=== PATIENT | male | born 1965 | race Caucasian/White ===

== ENCOUNTER 2017-04-29 16:29 | Emergency (ER) | payer SELFPAY ==
[~2017-04-29] VITALS: Ht 185.4 cm; Wt 75.0 kg
[~2017-04-29 16:29] MED LIST: AMOX500T PO; INVE6TAB2 PO
[2017-04-29 16:32] VITALS: BP 140/88; PULSE 97; RESP 16; TEMP 98.7; O2SAT 98
--- NOTE | 2017-04-29 18:02 | PD ---
HPI Chief Complaint: Facial Pain or Swelling Time Seen by Provider: 18:01 Travel History International Travel<30 days: No Contact w/Intl Traveler<30days: No Traveled to known affect area: No History of Present Illness HPI 51-year-old male presents to the emergency Department with complaint of right- sided facial swelling to his right cheek area 2 days. Denies tooth pain. Denies fever, vomiting. Denies sore throat or difficulty swallowing. Denies unusual drooling. Has been taking ibuprofen for symptom management with good relief of pain. No known aggravating factors. Symptoms are moderate in severity. No known allergies. No primary care provider. Has no other medical complaints. No other modifying factors or associated signs and symptoms. PFSH Past Medical History Diabetes: Yes Patient Takes Glucophage: No Past Surgical History Appendectomy: Yes Social History Alcohol Use: Yes (OCC) Tobacco Use: Yes (2 CIG DAY) Substance Use: No Allergies-Medications (Allergen,Severity, Reaction): Coded Allergies: No Known Allergies (Unverified , 04/15/16) Reported Meds & Prescriptions Reported Meds & Active Scripts Active Deltasone (Prednisone) 20 Mg Tab 20 Mg PO BID 4 Days start 04/30/2017 Peridex Liq (Chlorhexidine Gluconate (Mouth) Liq) 0.12% Soln 15 Ml SWISH-SPIT BID 10 Days Ibuprofen 800 Mg Tab 800 Mg PO Q6HR PRN Clindamycin (Clindamycin HCl) 150 Mg Cap 450 Mg PO Q6H 10 Days Review of Systems Except as stated in HPI: all other systems reviewed are Neg Physical Exam Narrative GENERAL: Well-nourished, well-developed male patient, in no acute distress; afebrile, nontoxic-appearing SKIN: Warm and dry. HEAD: Atraumatic. Normocephalic. Normal right-sided facial edema and with tenderness on palpation; no erythema. No lymphadenopathy. EYES: Pupils equal and round. No scleral icterus. No injection or drainage. ENT: Mucosa pink and moist. No erythema or exudates. No uvular edema. No uvular , palatal, or tonsillar deviation. Airway patent. EARS: Bilateral pinnae and external canals appear within normal limits. Bilateral tympanic membranes without erythema, dullness or perforation. MOUTH: Mucous membranes moist, no lesions, tongue appear normal. Right upper gingiva with obvious abscess and fluctuance; with erythema and edema to the area. No drainage noted. Partially edentulous with multiple dental cavities and tooth decay. NECK: Trachea midline. No lymphadenopathy. CARDIOVASCULAR: Regular rate. RESPIRATORY: No accessory muscle use. GASTROINTESTINAL: Flat. MUSCULOSKELETAL: No obvious deformities. No clubbing. No cyanosis. No edema. NEUROLOGICAL: Awake and alert. Oriented 3. No obvious cranial nerve deficits. Motor grossly within normal limits. Normal speech. PSYCHIATRIC: Appropriate mood and affect; insight and judgment normal. Data Data Last Documented VS Vital Signs Date Time Temp Pulse Resp B/P (MAP) Pulse Ox O2 Delivery O2 Flow Rate FiO2 04/29/17 16:32 98.7 97 16 140/88 (105) 98 Orders Orders Clindamycin Inj (Cleocin Inj) (04/29/17 18:30) Prednisone (Deltasone) (04/29/17 18:30) MDM Medical Decision Making Medical Screen Exam Complete: Yes Emergency Medical Condition: Yes Medical Record Reviewed: Yes Differential Diagnosis Dental abscess, infected dental caries, dentalgia Narrative Course 51-year-old male with right upper dental abscess. See my procedure note for incision and drainage. Clindamycin 600 mg IM administered in the ER. Deltasone administered in the ER. I with the patient pain medication and he declined. Ibuprofen was taken prior to arrival. Instructed patient to follow up with dentist. Emergency dental information sheet provided for follow-up. Clindamycin, Peridex mouth rinse, ibuprofen prescribed for home. Instructed patient to follow up with primary care provider. Patient verbalizes understanding and agreement with treatment plan. Patient is medically cleared and stable for discharge. Discussed reasons to return to the emergency department. Patient agrees with treatment plan. The patients vital signs are stable and the patient is stable for outpatient follow-up and treatment. Patient discharged home, stable and in no acute distress. Procedures Procedure Narrative INCISION AND DRAINAGE OF ABSCESS: The area was prepped and was sterilely draped. Hurricaine spray was used to anesthetize the area. The area was properly anesthetized. A number 11 scalpel was used to make a less than 0.5-cm incision across the area of the abscess. The abscess was drained an irrigated with normal saline. Sterile dressing applied. Diagnosis Primary Impression: Dental abscess Referrals: Dentist Primary Care Physician Patient Instructions: Dental Abscess (ED), General Instructions Additional Instructions: Complete full course of antibiotics Ibuprofen or Tylenol as directed and as needed to reduce pain and inflammation Use Peridex as directed for oral hygiene Warm or cool compresses to the affected area Follow-up with dentist Follow-up with primary care provider Return to emergency department immediately with worsening of symptoms Med/Other Pt SpecificInfo: Prescription(s) given Scripts Hydrocodone-Acetaminophen ([place]) 5 Mg-325 Mg Tab 1 TAB PO Q4H Y for PAIN, #8 TAB 0 Refills Prov: Peyton Earl 04/29/17 Prednisone (Deltasone) 20 Mg Tab 20 MG PO BID for 4 Days, #8 TAB 0 Refills start 04/30/2017 Prov: Peyton Earl 04/29/17 Chlorhexidine Gluconate (Mouth) Liq (Peridex Liq) 0.12% Soln 15 ML SWISH-SPIT BID for 10 Days, #300 ML 0 Refills Prov: Peyton Earl 04/29/17 Ibuprofen (Ibuprofen) 800 Mg Tab 800 MG PO Q6HR Y for PAIN, #30 TAB 0 Refills Prov: Peyton Earl 04/29/17 Clindamycin (Clindamycin) 150 Mg Cap 450 MG PO Q6H for Infection for 10 Days, #120 CAP 0 Refills Prov: Peyton Earl 04/29/17 Disposition: 01 DISCHARGE HOME Condition: Stable Peyton Earl Apr 29, 2017 18:02
[2017-04-29] MEDS ORDERED: IBUP1TAB7 PO (18:22)
[2017-04-29] MEDS ORDERED: PERI0.126 SWISH-SPIT (18:22)
[2017-04-29] MEDS ORDERED: PRED-503 PO (18:22)
[2017-04-29] MEDS ORDERED: CLIN150C14 PO (18:22)
[2017-04-29] MEDS ORDERED: predniSONE 20 MG TAB PO ONE (18:30)
[2017-04-29] MEDS ORDERED: CLINDAMYCIN PHOS 600 MG/4 ML VIAL IM ONE (18:30)
[2017-04-29] MEDS ORDERED: NORC5TAB PO (19:14)
== END 2017-04-29 19:35 | disposition home or self-care (01) ==
LOC: NEPK 16:29
DX: K04.7 Periapical abscess without sinus (principal); K02.9 Dental caries, unspecified; E11.9 Type 2 diabetes mellitus without complications; F17.210 Nicotine dependence, cigarettes, uncomplicated; Z79.899 Other long term (current) drug therapy
CPT/HCPCS: 40800; 96372; 99284; J7512

== ENCOUNTER 2017-05-23 14:49 | Emergency (ER) | payer SELFPAY ==
[~2017-05-23 14:49] MED LIST changes: -AMOX500T PO; +CLIN150C14 PO; +IBUP1TAB7 PO; -INVE6TAB2 PO; +NORC5TAB PO; +PERI0.126 SWISH-SPIT; +PRED-503 PO
[2017-05-23 14:54] VITALS: BP 130/77; PULSE 74; RESP 16; TEMP 97.9; O2SAT 99
--- NOTE | 2017-05-23 15:41 | PD ---
HPI Chief Complaint: Injury Time Seen by Provider: 15:33 Travel History International Travel<30 days: No Contact w/Intl Traveler<30days: No Traveled to known affect area: No History of Present Illness HPI 51-year-old male presents to the emergency department for evaluation of left thoracic rib injury that occurred just prior to arrival. Patient states he fell at work off a truck and hit the bumper of a another truck with his ribs. He denies any other injury. No head injury or LOC. No neck pain or back pain. No abdominal pain. No vomiting. No hip or pelvic pain. Patient is not currently on any prescribed medications. Current pain is 10/10, worse with movement. Pain is slightly relieved with rest. Moderate severity. PFSH Past Medical History Diabetes: Yes Patient Takes Glucophage: No Past Surgical History Appendectomy: Yes Social History Alcohol Use: Yes (OCC) Tobacco Use: Yes Substance Use: No (HX OF) Allergies-Medications (Allergen,Severity, Reaction): Coded Allergies: No Known Allergies (Unverified Adverse Reaction, Unknown, 05/23/17) Reported Meds & Prescriptions Reported Meds & Active Scripts Active No Active Prescriptions or Reported Medications Review of Systems Except as stated in HPI: all other systems reviewed are Neg Physical Exam Narrative GENERAL: Well-nourished, well-developed male patient, afebrile. SKIN: Focused skin assessment warm/dry. HEAD: Normocephalic. Atraumatic. EYES: No scleral icterus. No injection or drainage. NECK: Supple, trachea midline. No JVD or lymphadenopathy. CARDIOVASCULAR: Regular rate and rhythm without murmurs, gallops, or rubs. RESPIRATORY: Breath sounds equal bilaterally. No accessory muscle use. Lungs sounds clear to auscultation. GASTROINTESTINAL: Abdomen soft, non-tender, nondistended. No abdominal pain to palpation. MUSCULOSKELETAL: No cyanosis, or edema. Patient has tenderness to palpation over left mid thoracic ribs. BACK: Nontender without obvious deformity. No CVA tenderness. Data Data Last Documented VS Vital Signs Date Time Temp Pulse Resp B/P (MAP) Pulse Ox O2 Delivery O2 Flow Rate FiO2 05/23/17 14:54 97.9 74 16 130/77 (94) 99 Orders Orders Ribs, Uni (W/Exp Cxr-Min 3vw) (05/23/17 ) Morphine Inj (Morphine Inj) (05/23/17 15:45) Ondansetron Inj (Zofran Inj) (05/23/17 15:45) MDM Medical Decision Making Medical Screen Exam Complete: Yes Emergency Medical Condition: Yes Medical Record Reviewed: Yes Interpretation(s) X-ray left ribs with chest - CONCLUSION: Acute fractures left RIBS 6, 7, and 8 lateral posterior laterally. No pneumothorax. Differential Diagnosis Rib fracture versus contusion versus pneumothorax versus hemothorax Narrative Course 51-year-old male presents to the emergency department for evaluation of left wrist injury that occurred just prior to arrival. Patient appears to be in significant amount of pain on exam. He is given morphine 4 mg IM, Zofran 4 mg IM for pain. X-ray of the left ribs with chest is ordered and pending. X-ray of the left ribs with chest shows acute fractures left RIBS 6, 7, and 8 lateral posterior laterally. No pneumothorax. Patient will be discharged with a prescription for [place] for pain. He also be given in sinus from a. He is instructed to return for any acute worsening of symptoms. The patient was discharged in stable condition with instructions, including return instructions and follow up instructions. Diagnosis Primary Impression: Ribs, multiple fractures Qualified Codes: S22.42XA - Multiple fractures of ribs, left side, initial encounter for closed fracture Referrals: Primary Care Physician 2 days Patient Instructions: General Instructions, Rib Fracture (ED) Departure Forms: Tests/Procedures, Work Release Enter return to work date: May 27, 2017 Additional Instructions: Take ibuprofen as directed as needed for [id number] pain. Take [place] as directed as needed for moderate to severe pain. Caution this can make you drowsy so do not drive after taking. Use incentive spirometer. Make sure you take deep breaths. This will help prevent pneumonia. Follow-up with your primary care physician. Return to the emergency department for any acute worsening of symptoms. Med/Other Pt SpecificInfo: Prescription(s) given Scripts Ibuprofen (Ibuprofen) 800 Mg Tab 800 MG PO TID Y for PAIN SCALE 1 TO 10, #21 TAB 0 Refills Prov: Anjelica Rivera 05/23/17 Hydrocodone-Acetaminophen ([place]) 5 Mg-325 Mg Tab 1 TAB PO Q6H Y for PAIN, #16 TAB 0 Refills Prov: Anjelica Rivera 05/23/17 Disposition: 01 DISCHARGE HOME Condition: Stable Anjelica Rivera May 23, 2017 15:41
[2017-05-23] MEDS ORDERED: ONDANSETRON HCL 4 MG/2 ML VIAL IM ONE (15:45)
[2017-05-23] MEDS ORDERED: MORPHINE SULFATE 2 MG/ML INJ IM ONE (15:45)
--- NOTE | 2017-05-23 16:55 | RADRPT ---
EXAM DATE/TIME: 05/23/2017 16:14 [facility] COMPARISON: No previous studies available for comparison. INDICATIONS : Rib pain. MEDICAL HISTORY : Porphyria cutanea tarda of the liver. SURGICAL HISTORY : None. ENCOUNTER: Initial ACUITY: 1 day PAIN SCORE: 8/10 LOCATION: Left posterior ribs FINDINGS: There are contiguous slightly offset rib fractures left ribs #67 and 8 lateral posterior lateral. No pneumothorax. No evidence of definite effusion is appreciated although there is a slight asymmetric i ncreased density in the left lung field which could represent mild posterior layering. CONCLUSION: Acute fractures left RIBS 6, 7, and 8 lateral posterior laterally. No pneumothorax. Caleb Paula MD on May 23, 2017 at 16:50 Board Certified Radiologist. This report was verified electronically.
[2017-05-23] MEDS ORDERED: IBUP1TAB7 PO (17:03)
[2017-05-23] MEDS ORDERED: NORC5TAB PO (17:03)
== END 2017-05-23 17:24 | disposition home or self-care (01) ==
LOC: PHEFT 14:49
DX: S22.42XA Multiple fractures of ribs, left side, initial encounter for closed fracture (principal); E11.9 Type 2 diabetes mellitus without complications; Z72.0 Tobacco use; W17.89XA Other fall from one level to another, initial encounter; Y99.0 Civilian activity done for income or pay
CPT/HCPCS: 71101; 94150; 96372; 99283; J2270; J2405